=== PATIENT | male | born 1970 | race African-American/Black ===

== ENCOUNTER 2017-05-12 23:16 | Emergency (ER) | payer OTHER ==
[~2017-05-12] VITALS: Ht 182.9 cm; Wt 112.0 kg
[~2017-05-12 23:16] MED LIST: OXYCODONE APAP; VICODIN 5-3001 EACH PO
[2017-05-13] MEDS ORDERED: MEDROL DOSEPAK4 MG PO (00:17)
[2017-05-13] MEDS ORDERED: VALIUM5 MG PO (00:17)
[2017-05-13] MEDS ORDERED: PERCOCET 5/31 TABLET PO (00:17)
[2017-05-13 00:44] VITALS: BP 118/80
== END 2017-05-13 00:45 | disposition home or self-care (01) ==
LOC: EME 23:16
DX: G89.29 Other chronic pain (principal); M54.42 Lumbago with sciatica, left side; M54.41 Lumbago with sciatica, right side; M54.16 Radiculopathy, lumbar region; F17.200 Nicotine dependence, unspecified, uncomplicated
CPT/HCPCS: 99281; 99284; J7512

== ENCOUNTER 2017-09-04 12:19 | Emergency (ER) | payer OTHER ==
[~2017-09-04] VITALS: Ht 182.9 cm; Wt 114.0 kg
[~2017-09-04 12:19] MED LIST changes: +MEDROL DOSEPAK4 MG PO; +OXYCODONE HCL10 MG PO; +PERCOCET 5/31 TABLET PO; +RELAFEN750 MG PO; +VALIUM5 MG PO; +ZANAFLEX4 M1 PO
[2017-09-04] MEDS ORDERED: NAPROXEN500 MG PO (16:18)
[2017-09-04] MEDS ORDERED: VALIUM5 MG PO (16:18)
[2017-09-04] MEDS ORDERED: FLEXERIL10 MG PO (16:29)
[2017-09-04 16:35] VITALS: BP 122/72
== END 2017-09-04 16:36 | disposition home or self-care (01) ==
LOC: EME 12:19
DX: S16.1XXA Strain of muscle, fascia and tendon at neck level, initial encounter (principal); S39.012A Strain of muscle, fascia and tendon of lower back, initial encounter; S70.02XA Contusion of left hip, initial encounter; W00.0XXA Fall on same level due to ice and snow, initial encounter; M19.91 Primary osteoarthritis, unspecified site; F17.200 Nicotine dependence, unspecified, uncomplicated
CPT/HCPCS: 72040; 72100; 73502; 99281; 99284; J2270

== ENCOUNTER 2017-09-08 03:21 | Emergency (ER) | payer OTHER ==
[~2017-09-08] VITALS: Ht 182.9 cm; Wt 114.5 kg
[~2017-09-08 03:21] MED LIST changes: +FLEXERIL10 MG PO; +NAPROXEN500 MG PO
[2017-09-08] MEDS ORDERED: VALIUM5 MG PO (05:32)
[2017-09-08 05:38] VITALS: BP 103/80
== END 2017-09-08 05:39 | disposition home or self-care (01) ==
LOC: EME 03:21
DX: M54.2 Cervicalgia (principal); M62.838 Other muscle spasm; G89.29 Other chronic pain; M54.9 Dorsalgia, unspecified; M25.512 Pain in left shoulder; W00.0XXA Fall on same level due to ice and snow, initial encounter; F17.200 Nicotine dependence, unspecified, uncomplicated
CPT/HCPCS: 72125; 99281; 99284